=== PATIENT | female | born 1960 | race Caucasian/White ===

== ENCOUNTER 2023-05-01 13:14 | Inpatient (IN) | payer OTHER ==
[2023-05-01 14:21] LABS: #Eosinphils 0.1 10x3/uL (0.0-0.5); #Monocytes 0.6 10x3/uL (0.0-1.1); #Neutrophils 3.3 10x3/uL (1.5-8.4); %Basophils 0.6 % (0.0-2.0); %Eosinophils 0.7 % (0.0-6.0); %Lymphocytes 43.8 % (18.0-47.0); %Monocytes 8.5 % (0.0-10.0); %Neutrophils 45.8 % (40.0-75.0); Hemoglobin 12.2 g/dL (12.0-15.5); Mean Corpuscular HGB CONC 33.3 g/dL (32.0-36.0); Mean Corpuscular Hemoglobin 36.5 pg (27.0-33.0); Mean Corpuscular Volume 109.6 fl (81.6-98.3); Mean Platelet Volume 8.5 fl (7.4-10.4); Platelet Count 255 10x3/uL (150-450); Red Blood Cell (RBC) Count 3.34 10x6/uL (3.90-5.03); White Blood Cell (WBC) Count 7.2 10x3/uL (3.5-10.5)
[2023-05-01 14:36] LABS: ALT (SGPT) 40 U/L (8-55); AST (SGOT) 35 U/L (5-34); Albumin 3.9 g/dL (3.4-4.8); Alkaline Phosphatase 59 U/L (40-110); Anion Gap 15 mmol/L (10-20); BUN (Urea Nitrogen) 9 mg/dL (9.8-20.1); Bilirubin, Total 0.6 mg/dL (0.2-1.2); CK (CPK) 176 U/L (29-168); Calc. Creatinine Clearance 0 mL/min (70-130); Carbon Dioxide 28 mmol/L (23-31); Chloride 100 mmol/L (98-107); Estimated GFR 91; Globulin 2.3 g/dL (2.4-3.5); Glucose 102 mg/dL (80-115); Potassium 3.9 mmol/L (3.5-5.1); Protein, Total 6.2 g/dL (5.8-8.1); Sodium 139 mmol/L (136-145)
[2023-05-01 16:05] LABS: Bilirubin Neg (Negative); Blood, Urine Negative (Negative); Clarity Clear (Clear); Glucose, Urine (Dipstick) Normal (Negative); Ketone, Urine Negative (Negative); Leukocyte Negative (Negative); Nitrite Negative (Negative); Protein, Urine (Dipstick) Negative (Neg-Trace); Urobilinogen Normal mg/dL (Less than 2)
[2023-05-01 16:34] LABS: Bacteria/HPF Rare-Few HPF (None Seen); CAUTI Indications for Culture Alt mental st,lethar; RBC/HPF 0-3 HPF (0-3); Squamous Epithelial 0-3 HPF (0-3); WBC/HPF 0-3 HPF (0-3)
[2023-05-01 16:35] LABS: Urine Culture Reflex No No
[2023-05-01] MEDS ORDERED: Melatonin 3 MG TAB PO PRN (17:54)
[2023-05-01 19:48] VITALS: BMI 35.2
[2023-05-01] MEDS: Atorvastatin Calcium 40 MG TAB PO SCH (20:26)
[2023-05-01] MEDS: Apixaban 5 MG TAB PO SCH (20:26)
[2023-05-01] MEDS: busPIRone HCl 15 MG TAB PO SCH (20:26)
[2023-05-01] MEDS: Famotidine 20 MG TAB PO SCH (20:27)
[2023-05-01] MEDS: Gabapentin 300 MG CAP PO SCH (20:27)
[2023-05-01] MEDS: Donepezil HCl 5 MG TAB PO SCH (20:27)
[2023-05-01] MEDS: Zolpidem Tartrate 5 MG TAB PO SCH (20:28)
[2023-05-01] MEDS: Acetaminophen 325 MG TAB PO PRN (20:28)
[2023-05-02] MEDS: Ondansetron PF 4 MG/2 ML Vial IVP PRN ×2 (00:04→09:18)
[2023-05-02 04:07] LABS: Anion Gap 13 mmol/L (10-20); BUN (Urea Nitrogen) 9 mg/dL (9.8-20.1); Calc. Creatinine Clearance 125 mL/min (70-130); Calcium 8.5 mg/dL (7.8-10.44); Carbon Dioxide 29 mmol/L (23-31); Chloride 103 mmol/L (98-107); Estimated GFR 95; Glucose 112 mg/dL (80-115); Potassium 3.1 mmol/L (3.5-5.1); Sodium 142 mmol/L (136-145)
[2023-05-02 04:12] LABS: #Eosinphils 0.1 10x3/uL (0.0-0.5); #Monocytes 0.5 10x3/uL (0.0-1.1); %Basophils 0.7 % (0.0-2.0); %Eosinophils 1.4 % (0.0-6.0); %Lymphocytes 54.4 % (18.0-47.0); %Monocytes 8.7 % (0.0-10.0); %Neutrophils 33.9 % (40.0-75.0); Hemoglobin 12.2 g/dL (12.0-15.5); Mean Corpuscular HGB CONC 33.4 g/dL (32.0-36.0); Mean Corpuscular Hemoglobin 36.5 pg (27.0-33.0); Mean Corpuscular Volume 109.3 fl (81.6-98.3); Mean Platelet Volume 8.3 fl (7.4-10.4); Platelet Count 236 10x3/uL (150-450); RBC Distribution Width 12.9 % (11.5-14.5); Red Blood Cell (RBC) Count 3.34 10x6/uL (3.90-5.03); White Blood Cell (WBC) Count 5.9 10x3/uL (3.5-10.5)
[2023-05-02 04:24] LABS: MDiff Complete? YES
[2023-05-02] MEDS: Levothyroxine Sodium 50 MCG TAB PO SCH (05:44)
[2023-05-02 06:44] LABS: Lymphocytes 42 % (21-51); Monocytes 9 % (0-10); Neutrophil 36 % (42-75); Reactive Lymphocytes 13 % (0-10)
[2023-05-02 06:45] LABS: Macrocytosis SLIGHT = 6-15 cells (100X) (0-5/hpf); Platelet Adequacy Comment Appears Adequate
[2023-05-02] MEDS: Furosemide 40 MG TAB PO SCH (09:15)
[2023-05-02] MEDS: DULoxetine 30 MG CAP PO SCH (09:15)
[2023-05-02] MEDS: Apixaban 5 MG TAB PO SCH ×2 (09:16→20:31)
[2023-05-02] MEDS: Spironolactone 25 MG TAB PO SCH (09:16)
[2023-05-02] MEDS: Estradiol 1 MG TAB PO SCH (09:16)
[2023-05-02] MEDS: Acetaminophen 325 MG TAB PO PRN ×2 (09:16→20:31)
[2023-05-02] MEDS: Ezetimibe 10 MG TAB PO SCH (09:17)
[2023-05-02] MEDS: Famotidine 20 MG TAB PO SCH ×2 (09:17→20:29)
[2023-05-02] MEDS: busPIRone HCl 15 MG TAB PO SCH ×3 (09:17→20:30)
[2023-05-02] MEDS: Gabapentin 300 MG CAP PO SCH ×3 (09:18→20:30)
[2023-05-02] MEDS ORDERED: Ferrous Sulfate 325 MG TAB PO SCH (12:00)
[2023-05-02] MEDS: Donepezil HCl 5 MG TAB PO SCH (20:30)
[2023-05-02] MEDS: Atorvastatin Calcium 40 MG TAB PO SCH (20:30)
[2023-05-02] MEDS: Zolpidem Tartrate 5 MG TAB PO SCH (20:30)
[2023-05-03] MEDS: Levothyroxine Sodium 50 MCG TAB PO SCH (06:00)
[2023-05-03 08:53] LABS: Anion Gap 17 mmol/L (10-20); BUN (Urea Nitrogen) 9 mg/dL (9.8-20.1); Calc. Creatinine Clearance 120 mL/min (70-130); Carbon Dioxide 26 mmol/L (23-31); Chloride 100 mmol/L (98-107); Estimated GFR 91; Glucose 131 mg/dL (80-115); Magnesium 1.8 mg/dL (1.6-2.6); Potassium 4.4 mmol/L (3.5-5.1); Sodium 139 mmol/L (136-145)
[2023-05-03] MEDS: Furosemide 40 MG TAB PO SCH (09:36)
[2023-05-03] MEDS: Spironolactone 25 MG TAB PO SCH (09:36)
[2023-05-03] MEDS: Famotidine 20 MG TAB PO SCH ×2 (09:36→20:20)
[2023-05-03] MEDS: busPIRone HCl 15 MG TAB PO SCH ×3 (09:36→20:20)
[2023-05-03] MEDS: Apixaban 5 MG TAB PO SCH ×2 (09:37→20:20)
[2023-05-03] MEDS: Estradiol 1 MG TAB PO SCH (09:37)
[2023-05-03] MEDS: Ezetimibe 10 MG TAB PO SCH (09:37)
[2023-05-03] MEDS: DULoxetine 30 MG CAP PO SCH (09:37)
[2023-05-03] MEDS: Gabapentin 300 MG CAP PO SCH ×3 (09:37→20:20)
[2023-05-03] MEDS: Ondansetron PF 4 MG/2 ML Vial IVP PRN (13:59)
[2023-05-03] MEDS: Acetaminophen 325 MG TAB PO PRN (13:59)
[2023-05-03] MEDS: Atorvastatin Calcium 40 MG TAB PO SCH (20:20)
[2023-05-03] MEDS: Zolpidem Tartrate 5 MG TAB PO SCH (20:20)
[2023-05-03] MEDS: Donepezil HCl 5 MG TAB PO SCH (20:20)
[2023-05-03] MEDS: QUEtiapine 100 MG TAB PO SCH (20:20)
[2023-05-04 03:59] LABS: Anion Gap 17 mmol/L (10-20); BUN (Urea Nitrogen) 10 mg/dL (9.8-20.1); Calc. Creatinine Clearance 125 mL/min (70-130); Calcium 8.8 mg/dL (7.8-10.44); Carbon Dioxide 25 mmol/L (23-31); Chloride 99 mmol/L (98-107); Estimated GFR 95; Glucose 111 mg/dL (80-115); Magnesium 1.8 mg/dL (1.6-2.6); Potassium 3.1 mmol/L (3.5-5.1); Sodium 138 mmol/L (136-145)
[2023-05-04] MEDS: Levothyroxine Sodium 50 MCG TAB PO SCH (05:45)
[2023-05-04] MEDS: DULoxetine 30 MG CAP PO SCH (08:30)
[2023-05-04] MEDS: Ezetimibe 10 MG TAB PO SCH (08:31)
[2023-05-04] MEDS: Apixaban 5 MG TAB PO SCH ×2 (08:31→21:00)
[2023-05-04] MEDS: Spironolactone 25 MG TAB PO SCH (08:31)
[2023-05-04] MEDS: Furosemide 40 MG TAB PO SCH (08:31)
[2023-05-04] MEDS: Famotidine 20 MG TAB PO SCH ×2 (08:31→21:00)
[2023-05-04] MEDS: Estradiol 1 MG TAB PO SCH (08:31)
[2023-05-04] MEDS: busPIRone HCl 15 MG TAB PO SCH ×3 (08:31→21:00)
[2023-05-04] MEDS: Acetaminophen 325 MG TAB PO PRN ×2 (08:32→21:01)
[2023-05-04] MEDS: Gabapentin 300 MG CAP PO SCH ×3 (08:32→21:00)
[2023-05-04] MEDS: Ondansetron PF 4 MG/2 ML Vial IVP PRN (08:37)
[2023-05-04] MEDS ORDERED: Magnesium Sulfate 3 GM in Sodium Chloride 0.9% 100 ML IVPB SCH (10:15)
[2023-05-04] MEDS ORDERED: Magnesium 2 GM/50 ML(in water) 2 GM in Premix Bag 1 BAG IVPB SCH (10:30)
[2023-05-04] MEDS ORDERED: Magnesium 2 GM/50 ML BAG (IN WATER) ONE (11:03)
[2023-05-04] MEDS: Potassium Chloride 20 MEQ TAB PO SCH ×2 (11:23→15:00)
[2023-05-04] MEDS ORDERED: Magnesium Sulfate/D5W 1 GM/100 ML BAG ONE (12:37)
[2023-05-04] MEDS: QUEtiapine 100 MG TAB PO SCH (21:00)
[2023-05-04] MEDS: Donepezil HCl 5 MG TAB PO SCH (21:00)
[2023-05-04] MEDS: Zolpidem Tartrate 5 MG TAB PO SCH (21:00)
[2023-05-04] MEDS: Atorvastatin Calcium 40 MG TAB PO SCH (21:00)
[2023-05-05 04:53] LABS: #Basophils 0.1 10x3/uL (0.0-0.2); #Eosinphils 0.1 10x3/uL (0.0-0.5); #Monocytes 0.7 10x3/uL (0.0-1.1); #Neutrophils 3.4 10x3/uL (1.5-8.4); %Basophils 0.7 % (0.0-2.0); %Eosinophils 0.9 % (0.0-6.0); %Lymphocytes 46.5 % (18.0-47.0); %Neutrophils 42.2 % (40.0-75.0); Hemoglobin 14.5 g/dL (12.0-15.5); Mean Corpuscular HGB CONC 34.3 g/dL (32.0-36.0); Mean Corpuscular Hemoglobin 37.1 pg (27.0-33.0); Mean Corpuscular Volume 108.2 fl (81.6-98.3); Mean Platelet Volume 8.3 fl (7.4-10.4); Platelet Count 248 10x3/uL (150-450); RBC Distribution Width 12.5 % (11.5-14.5); Red Blood Cell (RBC) Count 3.91 10x6/uL (3.90-5.03)
[2023-05-05] MEDS: Levothyroxine Sodium 50 MCG TAB PO SCH (05:02)
[2023-05-05 05:14] LABS: Anion Gap 14 mmol/L (10-20); BUN (Urea Nitrogen) 11 mg/dL (9.8-20.1); Calc. Creatinine Clearance 123 mL/min (70-130); Calcium 8.6 mg/dL (7.8-10.44); Carbon Dioxide 24 mmol/L (23-31); Chloride 103 mmol/L (98-107); Estimated GFR 94; Glucose 129 mg/dL (80-115); Magnesium 2.2 mg/dL (1.6-2.6); Potassium 3.9 mmol/L (3.5-5.1); Sodium 137 mmol/L (136-145)
[2023-05-05 05:24] LABS: Platelet Adequacy Comment Appears Adequate
[2023-05-05 05:25] LABS: Macrocytosis SLIGHT = 6-15 cells (100X) (0-5/hpf)
[2023-05-05 09:09] VITALS: TEMP 98
[2023-05-05] MEDS: DULoxetine 30 MG CAP PO SCH (10:08)
[2023-05-05] MEDS: Gabapentin 300 MG CAP PO SCH (10:08)
[2023-05-05] MEDS: Apixaban 5 MG TAB PO SCH (10:09)
[2023-05-05] MEDS: Furosemide 40 MG TAB PO SCH (10:09)
[2023-05-05] MEDS: Ezetimibe 10 MG TAB PO SCH (10:09)
[2023-05-05] MEDS: busPIRone HCl 15 MG TAB PO SCH (10:09)
[2023-05-05] MEDS: Famotidine 20 MG TAB PO SCH (10:09)
[2023-05-05] MEDS: Estradiol 1 MG TAB PO SCH (10:09)
[2023-05-05] MEDS: Spironolactone 25 MG TAB PO SCH (10:10)
[2023-05-05 10:42] VITALS: BP 129/79
== END 2023-05-05 11:44 | disposition home or self-care (01) | DRG 552 ==
LOC: CSHERS 13:14 → CSHTELE 17:44 → OBSVTOIN 05-03 12:53
PROVIDERS: ADMIT Internal Medicine; ATTEND Internal Medicine
DX: M48.061 Spinal stenosis, lumbar region without neurogenic claudication (principal); M54.32 Sciatica, left side; I25.10 Atherosclerotic heart disease of native coronary artery without angina pectoris; E78.5 Hyperlipidemia, unspecified; F41.9 Anxiety disorder, unspecified; E03.9 Hypothyroidism, unspecified; I48.91 Unspecified atrial fibrillation; I11.0 Hypertensive heart disease with heart failure; I50.9 Heart failure, unspecified; R29.898 Other symptoms and signs involving the musculoskeletal system; Z88.0 Allergy status to penicillin; Z88.2 Allergy status to sulfonamides; Z79.1 Long term (current) use of non-steroidal anti-inflammatories (NSAID); Z79.891 Long term (current) use of opiate analgesic; Z79.02 Long term (current) use of antithrombotics/antiplatelets; Z79.899 Other long term (current) drug therapy; Z79.890 Hormone replacement therapy; Z79.01 Long term (current) use of anticoagulants; Z90.49 Acquired absence of other specified parts of digestive tract; Z95.1 Presence of aortocoronary bypass graft; Z98.890 Other specified postprocedural states; Z98.891 History of uterine scar from previous surgery; Z87.891 Personal history of nicotine dependence; F60.3 Borderline personality disorder; G89.29 Other chronic pain
CPT/HCPCS: 36415; 71045; 80048; 80053; 81001; 82550; 83605; 83735; 83880; 84484; 85025; 93005; 96374; 96376; G0378; J2405; J3475

== ENCOUNTER 2023-05-06 08:57 | Emergency (ER) | payer OTHER ==
[2023-05-06] MEDS ORDERED: Morphine 4 MG/ML VIAL ONE (09:49)
[2023-05-06 10:04] LABS: #Basophils 0.1 10x3/uL (0.0-0.2); #Monocytes 0.6 10x3/uL (0.0-1.1); #Neutrophils 6.5 10x3/uL (1.5-8.4); %Basophils 0.5 % (0.0-2.0); %Eosinophils 0.2 % (0.0-6.0); %Lymphocytes 23.2 % (18.0-47.0); %Monocytes 6.3 % (0.0-10.0); %Neutrophils 69.1 % (40.0-75.0); Hemoglobin 13.9 g/dL (12.0-15.5); Mean Corpuscular HGB CONC 33.7 g/dL (32.0-36.0); Mean Corpuscular Hemoglobin 36.5 pg (27.0-33.0); Mean Corpuscular Volume 108.4 fl (81.6-98.3); Mean Platelet Volume 8.4 fl (7.4-10.4); Platelet Count 293 10x3/uL (150-450); RBC Distribution Width 12.8 % (11.5-14.5); Red Blood Cell (RBC) Count 3.81 10x6/uL (3.90-5.03); White Blood Cell (WBC) Count 9.5 10x3/uL (3.5-10.5)
[2023-05-06 10:14] LABS: ALT (SGPT) 30 U/L (8-55); AST (SGOT) 25 U/L (5-34); Albumin 4.3 g/dL (3.4-4.8); Alkaline Phosphatase 69 U/L (40-110); Anion Gap 15 mmol/L (10-20); BUN (Urea Nitrogen) 11 mg/dL (9.8-20.1); Bilirubin, Total 0.5 mg/dL (0.2-1.2); Calc. Creatinine Clearance 0 mL/min (70-130); Calcium 8.9 mg/dL (7.8-10.44); Carbon Dioxide 26 mmol/L (23-31); Chloride 102 mmol/L (98-107); Estimated GFR 83; Globulin 2.5 g/dL (2.4-3.5); Glucose 144 mg/dL (80-115); Potassium 4.1 mmol/L (3.5-5.1); Protein, Total 6.8 g/dL (5.8-8.1); Sodium 139 mmol/L (136-145)
== END 2023-05-06 14:14 | disposition home or self-care (01) ==
LOC: CSHERS 08:57
DX: R19.7 Diarrhea, unspecified (principal); R53.1 Weakness; E78.5 Hyperlipidemia, unspecified; I25.10 Atherosclerotic heart disease of native coronary artery without angina pectoris; I10 Essential (primary) hypertension; E03.9 Hypothyroidism, unspecified; Z87.891 Personal history of nicotine dependence
CPT/HCPCS: 36415; 80053; 82274; 85025; 93005; 96374; J2270

== ENCOUNTER 2023-05-29 09:07 | Emergency (ER) | payer OTHER ==
[2023-05-29] MEDS ORDERED: fentaNYL 50 mcg/mL 1 mL Vial ONE (10:58)
[2023-05-29] MEDS ORDERED: Ondansetron PF 4 MG/2 ML Vial ONE (11:06)
== END 2023-05-29 13:00 | disposition home or self-care (01) ==
LOC: CSHERS 09:07
DX: T14.8XXA Other injury of unspecified body region, initial encounter (principal); I25.10 Atherosclerotic heart disease of native coronary artery without angina pectoris; E03.9 Hypothyroidism, unspecified; W01.0XXA Fall on same level from slipping, tripping and stumbling without subsequent striking against object, initial encounter
CPT/HCPCS: 70450; 72125; 72170; 96374; J2405; J3010

== ENCOUNTER 2023-06-05 13:30 | Emergency (ER) | payer OTHER ==
[2023-06-05 14:34] LABS: #Basophils 0.1 10x3/uL (0.0-0.2); #Monocytes 0.6 10x3/uL (0.0-1.1); %Basophils 0.9 % (0.0-2.0); %Eosinophils 0.7 % (0.0-6.0); %Lymphocytes 36.6 % (18.0-47.0); %Monocytes 9.7 % (0.0-10.0); %Neutrophils 51.2 % (40.0-75.0); Hemoglobin 11.7 g/dL (12.0-15.5); Mean Corpuscular HGB CONC 33.1 g/dL (32.0-36.0); Mean Corpuscular Hemoglobin 37.3 pg (27.0-33.0); Mean Corpuscular Volume 112.7 fl (81.6-98.3); Mean Platelet Volume 8.5 fl (7.4-10.4); Platelet Count 257 10x3/uL (150-450); RBC Distribution Width 14.7 % (11.5-14.5); Red Blood Cell (RBC) Count 3.14 10x6/uL (3.90-5.03); White Blood Cell (WBC) Count 5.8 10x3/uL (3.5-10.5)
[2023-06-05 14:43] LABS: ALT (SGPT) 37 U/L (8-55); AST (SGOT) 40 U/L (5-34); Albumin 3.7 g/dL (3.4-4.8); Alkaline Phosphatase 53 U/L (40-110); Anion Gap 15 mmol/L (10-20); BUN (Urea Nitrogen) 7 mg/dL (9.8-20.1); Bilirubin, Total 0.5 mg/dL (0.2-1.2); Calc. Creatinine Clearance 0 mL/min (70-130); Calcium 8.7 mg/dL (7.8-10.44); Carbon Dioxide 25 mmol/L (23-31); Chloride 104 mmol/L (98-107); Estimated GFR 97; Globulin 2.5 g/dL (2.4-3.5); Glucose 103 mg/dL (80-115); Magnesium 1.6 mg/dL (1.6-2.6); Potassium 3.8 mmol/L (3.5-5.1); Protein, Total 6.2 g/dL (5.8-8.1); Sodium 140 mmol/L (136-145)
[2023-06-05] MEDS ORDERED: Morphine 4 MG/ML VIAL ONE (14:50)
[2023-06-05] MEDS ORDERED: HYDROcodone/Acetaminophen 5/325 mg Tablet ONE (14:59)
== END 2023-06-05 15:52 | disposition home or self-care (01) ==
LOC: CSHERS 13:30
DX: S09.90XA Unspecified injury of head, initial encounter (principal); S70.02XA Contusion of left hip, initial encounter; R07.9 Chest pain, unspecified; I25.10 Atherosclerotic heart disease of native coronary artery without angina pectoris; E78.5 Hyperlipidemia, unspecified; E03.9 Hypothyroidism, unspecified; W18.30XA Fall on same level, unspecified, initial encounter
CPT/HCPCS: 70450; 71045; 72125; 80053; 83735; 85025; 93005; J2270

== ENCOUNTER 2023-07-26 18:52 | Emergency (ER) | payer OTHER ==
[2023-07-26] MEDS ORDERED: Aspirin 81 mg Enteric Coated Tablet ONE (19:43)
[2023-07-26 20:05] LABS: #Basophils 0.1 10x3/uL (0.0-0.2); #Monocytes 0.7 10x3/uL (0.0-1.1); %Basophils 0.5 % (0.0-2.0); %Eosinophils 0.2 % (0.0-6.0); %Lymphocytes 16.8 % (18.0-47.0); %Monocytes 7.3 % (0.0-10.0); %Neutrophils 74.7 % (40.0-75.0); Hematocrit 41.8 % (34.9-44.5); Hemoglobin 14.1 g/dL (12.0-15.5); Mean Corpuscular HGB CONC 33.7 g/dL (32.0-36.0); Mean Corpuscular Volume 109.7 fl (81.6-98.3); Mean Platelet Volume 8.2 fl (7.4-10.4); Platelet Count 289 10x3/uL (150-450); RBC Distribution Width 14.1 % (11.5-14.5); Red Blood Cell (RBC) Count 3.81 10x6/uL (3.90-5.03); White Blood Cell (WBC) Count 9.3 10x3/uL (3.5-10.5)
[2023-07-26 20:16] LABS: ALT (SGPT) 17 U/L (8-55); AST (SGOT) 20 U/L (5-34); Albumin 3.5 g/dL (3.4-4.8); Alkaline Phosphatase 70 U/L (40-110); Anion Gap 19 mmol/L (10-20); BUN (Urea Nitrogen) 9 mg/dL (9.8-20.1); Bilirubin, Total 0.5 mg/dL (0.2-1.2); Calc. Creatinine Clearance 0 mL/min (70-130); Calcium 8.7 mg/dL (7.8-10.44); Carbon Dioxide 24 mmol/L (23-31); Chloride 98 mmol/L (98-107); Estimated GFR 100; Globulin 2.8 g/dL (2.4-3.5); Glucose 115 mg/dL (80-115); Lipase 11 U/L (8-78); Potassium 3.9 mmol/L (3.5-5.1); Protein, Total 6.3 g/dL (5.8-8.1); Sodium 137 mmol/L (136-145)
[2023-07-26 20:28] LABS: Troponin I Less than 0.010 ng/mL (< 0.028)
== END 2023-07-26 23:03 | disposition short-term general hospital (02) ==
LOC: CSHERS 18:52
DX: R07.9 Chest pain, unspecified (principal); R09.02 Hypoxemia; I11.0 Hypertensive heart disease with heart failure; I50.9 Heart failure, unspecified; K21.9 Gastro-esophageal reflux disease without esophagitis; I25.10 Atherosclerotic heart disease of native coronary artery without angina pectoris; I48.91 Unspecified atrial fibrillation
CPT/HCPCS: 36415; 71045; 80053; 83605; 83690; 83880; 84484; 85025; 93005; 94760

== ENCOUNTER 2023-08-27 11:55 | Emergency (ER) | payer OTHER ==
[2023-08-27 13:12] LABS: #Basophils 0.1 10x3/uL (0.0-0.2); #Eosinphils 0.1 10x3/uL (0.0-0.5); #Monocytes 0.8 10x3/uL (0.0-1.1); %Basophils 0.6 % (0.0-2.0); %Eosinophils 0.5 % (0.0-6.0); %Lymphocytes 29.9 % (18.0-47.0); %Monocytes 7.8 % (0.0-10.0); %Neutrophils 60.5 % (40.0-75.0); Hematocrit 42.8 % (34.9-44.5); Hemoglobin 14.5 g/dL (12.0-15.5); Mean Corpuscular HGB CONC 33.9 g/dL (32.0-36.0); Mean Corpuscular Hemoglobin 37.2 pg (27.0-33.0); Mean Corpuscular Volume 109.7 fl (81.6-98.3); Mean Platelet Volume 8.3 fl (7.4-10.4); Platelet Count 305 10x3/uL (150-450); RBC Distribution Width 13.4 % (11.5-14.5)
[2023-08-27 13:18] LABS: ALT (SGPT) 14 U/L (8-55); AST (SGOT) 19 U/L (5-34); Albumin 3.5 g/dL (3.4-4.8); Alkaline Phosphatase 52 U/L (40-110); Anion Gap 16 mmol/L (10-20); BUN (Urea Nitrogen) 9 mg/dL (9.8-20.1); Bilirubin, Total 0.5 mg/dL (0.2-1.2); Calc. Creatinine Clearance 0 mL/min (70-130); Calcium 8.6 mg/dL (7.8-10.44); Carbon Dioxide 28 mmol/L (23-31); Chloride 95 mmol/L (98-107); Estimated GFR 99; Globulin 2.6 g/dL (2.4-3.5); Glucose 104 mg/dL (80-115); Magnesium 1.8 mg/dL (1.6-2.6); Protein, Total 6.1 g/dL (5.8-8.1); Sodium 135 mmol/L (136-145)
[2023-08-27 14:13] LABS: Bacteria/HPF None Seen HPF (None Seen); CAUTI Indications for Culture Dysuria,urgency,freq; RBC/HPF None Seen HPF (0-3); Squamous Epithelial 0-3 HPF (0-3); WBC/HPF None Seen HPF (0-3)
[2023-08-27 14:14] LABS: Urine Culture Reflex No No
[2023-08-27 14:16] LABS: Bilirubin Neg (Negative); Blood, Urine Negative (Negative); Glucose, Urine (Dipstick) Normal (Negative); Ketone, Urine 50 mg/dL (Negative); Leukocyte 25 (Negative); Nitrite Negative (Negative); Protein, Urine (Dipstick) 15 mg/dl (Neg-Trace); Urobilinogen Normal mg/dL (Less than 2)
[2023-08-27 14:17] LABS: Clarity Clear (Clear)
[2023-08-27] MEDS ORDERED: Iopamidol 300 61% 100 ML VIAL FS ONE (14:43)
== END 2023-08-27 15:55 | disposition home or self-care (01) ==
LOC: CSHERS 11:55
DX: R33.9 Retention of urine, unspecified (principal); K21.9 Gastro-esophageal reflux disease without esophagitis; I10 Essential (primary) hypertension; I25.10 Atherosclerotic heart disease of native coronary artery without angina pectoris
CPT/HCPCS: 51702; 74177; 80053; 81001; 83735; 85025; Q9967

== ENCOUNTER 2023-09-19 10:53 | Inpatient (IN) | payer OTHER ==
[~2023-09-19 10:53] MED LIST: Iopamidol 300 61% 100 ML VIAL FS ONE
[2023-09-19 12:30] LABS: INR-International Normal Ratio 1.1; Prothrombin Time 11.3 sec (9.5-12.1)
[2023-09-19 12:31] LABS: #Eosinphils 0.1 10x3/uL (0.0-0.5); #Monocytes 0.6 10x3/uL (0.0-1.1); #Neutrophils 6.9 10x3/uL (1.5-8.4); %Basophils 0.4 % (0.0-2.0); %Eosinophils 0.7 % (0.0-6.0); %Lymphocytes 19.8 % (18.0-47.0); %Neutrophils 72.5 % (40.0-75.0); Hematocrit 41.4 % (34.9-44.5); Hemoglobin 13.5 g/dL (12.0-15.5); Mean Corpuscular HGB CONC 32.6 g/dL (32.0-36.0); Mean Corpuscular Hemoglobin 37.1 pg (27.0-33.0); Mean Corpuscular Volume 113.7 fl (81.6-98.3); Mean Platelet Volume 8.6 fl (7.4-10.4); Platelet Count 286 10x3/uL (150-450); RBC Distribution Width 14.4 % (11.5-14.5); Red Blood Cell (RBC) Count 3.64 10x6/uL (3.90-5.03); White Blood Cell (WBC) Count 9.5 10x3/uL (3.5-10.5)
[2023-09-19 12:35] LABS: ALT (SGPT) 16 U/L (8-55); AST (SGOT) 20 U/L (5-34); Alkaline Phosphatase 47 U/L (40-110); Anion Gap 14 mmol/L (10-20); BUN (Urea Nitrogen) 5 mg/dL (9.8-20.1); Bilirubin, Total 0.3 mg/dL (0.2-1.2); Calc. Creatinine Clearance 0 mL/min (70-130); Calcium 8.1 mg/dL (7.8-10.44); Carbon Dioxide 29 mmol/L (23-31); Chloride 101 mmol/L (98-107); Estimated GFR 102; Globulin 2.2 g/dL (2.4-3.5); Glucose 123 mg/dL (80-115); Magnesium 1.9 mg/dL (1.6-2.6); Potassium 3.4 mmol/L (3.5-5.1); Protein, Total 5.2 g/dL (5.8-8.1); Sodium 141 mmol/L (136-145)
[2023-09-19 13:20] LABS: Macrocytosis SLIGHT = 6-15 cells (100X) (0-5/hpf); Polychromasia SLIGHT = 2-3 cells (100X) (0-2/hpf)
[2023-09-19 13:21] LABS: Platelet Adequacy Comment Appears Adequate
[2023-09-19] MEDS ORDERED: Senokot S 8.6-50 MG TAB PO PRN (13:39)
[2023-09-19] MEDS ORDERED: Bisacodyl 10 MG SUPP PR PRN (13:39)
[2023-09-19 17:48] VITALS: BMI 28.8
[2023-09-19] MEDS ORDERED: Bisacodyl 10 MG SUPP PR SCH (18:00)
[2023-09-19] MEDS ORDERED: Melatonin 3 MG TAB PO SCH (20:45)
[2023-09-19] MEDS: Polyethylene Glycol 3350 17 GM Packet PO SCH ×2 (22:22→23:21)
[2023-09-19] MEDS: Senokot S 8.6-50 MG TAB PO SCH (22:22)
[2023-09-19] MEDS: Atorvastatin Calcium 40 MG TAB PO SCH (22:22)
[2023-09-19] MEDS: Acetaminophen 325 MG TAB PO PRN (22:30)
[2023-09-20] MEDS: Ondansetron ODT 4 MG TAB PO PRN ×2 (02:35→10:29)
[2023-09-20] MEDS: Levothyroxine Sodium 50 MCG TAB PO SCH (06:01)
[2023-09-20] MEDS ORDERED: Furosemide 40 MG TAB PO SCH (07:30)
[2023-09-20] MEDS ORDERED: Diclofenac 1% 50 GM TOPICAL GEL TP PRN (08:43)
[2023-09-20] MEDS ORDERED: Mineral Oil ENEMA PR SCH (08:45)
[2023-09-20] MEDS: Senokot S 8.6-50 MG TAB PO SCH ×2 (10:26→21:12)
[2023-09-20] MEDS: Acetaminophen 325 MG TAB PO PRN (10:26)
[2023-09-20] MEDS: Gabapentin 300 MG CAP PO SCH ×3 (10:27→21:07)
[2023-09-20] MEDS: dilTIAZem CD 180 MG CAP PO SCH ×2 (10:28→10:34)
[2023-09-20] MEDS: Magnesium Oxide 400 MG TAB PO SCH (10:28)
[2023-09-20] MEDS: Lidocaine 4% Patch TP SCH (10:28)
[2023-09-20] MEDS: DULoxetine 30 MG CAP PO SCH ×2 (10:28→10:35)
[2023-09-20] MEDS: Isosorbide Mononitrate 30 MG ER.TAB PO SCH (10:28)
[2023-09-20] MEDS: Polyethylene Glycol 3350 17 GM Packet PO SCH ×2 (10:30→21:12)
[2023-09-20] MEDS: traZODone HCl 50 MG TAB PO SCH ×2 (10:30→20:10)
[2023-09-20] MEDS: busPIRone HCl 15 MG TAB PO SCH ×3 (10:30→21:09)
[2023-09-20] MEDS: Ranolazine 500 MG ER.TAB PO SCH ×2 (10:30→21:10)
[2023-09-20] MEDS: Estradiol 1 MG TAB PO SCH (11:26)
[2023-09-20] MEDS: Acetaminophen/Codeine 30-300mg Tablet PO PRN (17:15)
[2023-09-20] MEDS ORDERED: Transdermal Patch Removal TOP SCH (21:00)
[2023-09-20] MEDS ORDERED: Donepezil HCl 5 MG TAB PO SCH (21:00)
[2023-09-20] MEDS ORDERED: Zolpidem Tartrate 5 MG TAB PO SCH (21:00)
[2023-09-20] MEDS ORDERED: Ezetimibe 10 MG TAB PO SCH (21:00)
[2023-09-20] MEDS: Atorvastatin Calcium 40 MG TAB PO SCH (21:09)
[2023-09-21] MEDS: Acetaminophen/Codeine 30-300mg Tablet PO PRN ×3 (01:01→14:40)
[2023-09-21] MEDS: Levothyroxine Sodium 50 MCG TAB PO SCH (06:09)
[2023-09-21] MEDS: dilTIAZem CD 180 MG CAP PO SCH (10:42)
[2023-09-21] MEDS: traZODone HCl 50 MG TAB PO SCH (10:42)
[2023-09-21] MEDS: Estradiol 1 MG TAB PO SCH (10:42)
[2023-09-21] MEDS: Isosorbide Mononitrate 30 MG ER.TAB PO SCH (10:42)
[2023-09-21] MEDS: Lidocaine 4% Patch TP SCH (10:43)
[2023-09-21] MEDS: Gabapentin 300 MG CAP PO SCH ×2 (10:43→14:41)
[2023-09-21] MEDS: Ranolazine 500 MG ER.TAB PO SCH (10:43)
[2023-09-21] MEDS: Senokot S 8.6-50 MG TAB PO SCH (10:44)
[2023-09-21] MEDS: Polyethylene Glycol 3350 17 GM Packet PO SCH (10:44)
[2023-09-21] MEDS: Magnesium Oxide 400 MG TAB PO SCH (10:44)
[2023-09-21] MEDS: busPIRone HCl 15 MG TAB PO SCH ×2 (10:44→14:40)
[2023-09-21] MEDS: DULoxetine 30 MG CAP PO SCH (10:45)
[2023-09-21 16:54] VITALS: BP 102/69; TEMP 98.5
[2023-09-22] MEDS ORDERED: Ferrous Sulfate 325 MG TAB PO SCH (09:00)
== END 2023-09-21 20:30 | DRG 392 ==
LOC: CSHERS 10:53 → CSHTELE 15:25 → CSHERS 16:27 → OBSVTOIN 09-20 11:13
PROVIDERS: ADMIT Family Medicine; ATTEND Internal Medicine
DX: K52.89 Other specified noninfective gastroenteritis and colitis (principal); K62.5 Hemorrhage of anus and rectum; K56.41 Fecal impaction; I25.10 Atherosclerotic heart disease of native coronary artery without angina pectoris; I10 Essential (primary) hypertension; E78.5 Hyperlipidemia, unspecified; E03.9 Hypothyroidism, unspecified; I48.0 Paroxysmal atrial fibrillation; Z79.01 Long term (current) use of anticoagulants; Z79.899 Other long term (current) drug therapy; Z88.0 Allergy status to penicillin; Z88.1 Allergy status to other antibiotic agents; I48.91 Unspecified atrial fibrillation; F41.9 Anxiety disorder, unspecified; F32.A Depression, unspecified
CPT/HCPCS: 36415; 74177; 80053; 83735; 85025; 85610; 85730; 86900; 86901; 93005; G0378; Q0162; Q9967